=== PATIENT | male | born 1955 | race Two or more races ===

== ENCOUNTER 2017-03-25 10:03 | Outpatient (CLI) | payer OTHER ==
[~2017-03-25 10:03] MED LIST: ALLEGRA ALLERG180 MG PO; LOTRISONE CREAM45 GM TOP; TESSALON PERLE100 MG PO; TORADOL60 MG IM; [UNRECOGNIZED DRUG - OTHER] PO
== END 2017-03-25 10:26 | disposition home or self-care (01) ==
LOC: RAD 10:03
DX: M17.0 Bilateral primary osteoarthritis of knee (principal)

== ENCOUNTER 2017-09-21 16:42 | Emergency (ER) | payer OTHER ==
[~2017-09-21] VITALS: Ht 170.2 cm; Wt 83.9 kg
[2017-09-21] MEDS ORDERED: DICLOFENAC POTA50 MG PO (16:47)
== END 2017-09-21 17:42 | disposition home or self-care (01) ==
LOC: ER 16:42
DX: S91.342A Puncture wound with foreign body, left foot, initial encounter (principal); W26.8XXA Contact with other sharp object(s), not elsewhere classified, initial encounter; Y93.89 Activity, other specified; Y92.89 Other specified places as the place of occurrence of the external cause; Y99.8 Other external cause status

== ENCOUNTER 2018-01-20 08:22 | Outpatient (CLI) | payer OTHER ==
[~2018-01-20 08:22] MED LIST changes: +DICLOFENAC POTA50 MG PO
== END 2018-01-20 10:58 | disposition home or self-care (01) ==
LOC: LAB 08:22
DX: E03.8 Other specified hypothyroidism (principal); E78.89 Other lipoprotein metabolism disorders; I10 Essential (primary) hypertension; M06.4 Inflammatory polyarthropathy; N40.1 Benign prostatic hyperplasia with lower urinary tract symptoms

== ENCOUNTER 2018-01-20 09:33 | Outpatient (CLI) | payer OTHER | END 2018-01-20 15:28 | disposition home or self-care (01) | LOC: RAD 09:33 | DX: Q66.89 Other specified congenital deformities of feet (principal) ==

== ENCOUNTER 2018-06-19 10:00 | Outpatient (CLI) | payer OTHER | END 2018-06-19 17:00 | disposition home or self-care (01) | LOC: RAD 10:00 | DX: S40.911A Unspecified superficial injury of right shoulder, initial encounter (principal); M54.2 Cervicalgia ==

== ENCOUNTER → 2018-11-01 | Emergency (ER) | payer OTHER ==
[~2018-11-01] VITALS: Ht 152.4 cm; Wt 81.6 kg
== END | disposition left against medical advice (07) ==
LOC: ER 04:26
DX: Z53.20 Procedure and treatment not carried out because of patient's decision for unspecified reasons (principal)

== ENCOUNTER → 2019-02-20 | Outpatient (CLI) | payer OTHER | END | disposition home or self-care (01) | LOC: RAD 10:25 | DX: M54.2 Cervicalgia (principal) | CPT/HCPCS: 72141 ==

== ENCOUNTER → 2020-06-16 12:47 | Outpatient (CLI) | payer OTHER | END | disposition home or self-care (01) | LOC: LAB 12:47 | PROVIDERS: ATTEND Internal Medicine | DX: N40.0 Benign prostatic hyperplasia without lower urinary tract symptoms (principal) ==

== ENCOUNTER → 2020-06-16 | Outpatient (CLI) | payer OTHER | END | disposition home or self-care (01) | LOC: LAB 08:40 → RAD 10:59 | PROVIDERS: ATTEND Internal Medicine | DX: M19.071 Primary osteoarthritis, right ankle and foot (principal); M19.072 Primary osteoarthritis, left ankle and foot; M19.041 Primary osteoarthritis, right hand; M19.042 Primary osteoarthritis, left hand; N40.0 Benign prostatic hyperplasia without lower urinary tract symptoms ==

== ENCOUNTER 2020-08-06 07:23 | Outpatient (CLI) | payer OTHER | END 2020-08-06 07:49 | disposition home or self-care (01) | LOC: LAB 07:23 | DX: E78.5 Hyperlipidemia, unspecified (principal); Z13.1 Encounter for screening for diabetes mellitus; I10 Essential (primary) hypertension ==

== ENCOUNTER 2024-12-30 08:40 | Outpatient (CLI) | payer OTHER | END 2024-12-30 08:51 | disposition home or self-care (01) | LOC: SONOGRAMA 08:40 | PROVIDERS: ATTEND Internal Medicine | DX: M65.0 Abscess of tendon sheath (principal) ==